=== PATIENT | male | born 1995 | race African-American/Black ===

== ENCOUNTER 2020-10-13 03:47 | Emergency (ER) | payer SELFPAY ==
[2020-10-13] MEDS ORDERED: Acetaminophen 500 MG TAB ONE (04:11)
== END 2020-10-13 04:10 | disposition home or self-care (01) ==
LOC: CSHERS 03:47
DX: R51.9 Headache, unspecified (principal); I10 Essential (primary) hypertension; Z79.899 Other long term (current) drug therapy
CPT/HCPCS: 99283